=== PATIENT | female | born 1965 | race Caucasian/White ===

== ENCOUNTER 2017-06-20 16:14 | Emergency (ER) | END 2017-06-20 18:10 | disposition left against medical advice (07) ==

== ENCOUNTER 2018-08-04 08:11 | Day surgery (SDC) | payer BC ==
[~2018-08-04] VITALS: Ht 144.8 cm; Wt 81.3 kg
[~2018-08-04 08:11] MED LIST: ALBU8.5H8; RTPRO5
[2018-08-04] MEDS ORDERED: CHOLESTEROL MED (09:37)
[2018-08-04] MEDS ORDERED: LOSARTAN (09:37)
[2018-08-04 09:39] VITALS: Ht 144.8 cm; Wt 81.3 kg
--- NOTE | 2018-08-04 09:45 | PREAC ---
Date/Time of Note Date/Time of Note DATE: 08/04/18 TIME: 09:44 Anesthesia Eval and Record Evaluation Time Pre-Procedure Interview DATE: 08/04/18 TIME: 09:44 Age 53 Sex female NPO: 8 hrs Preoperative diagnosis screening Planned procedure colonoscopy Past Medical History Past Medical History: Includes Cardio: HTN Endo: Diabetes GI: Obesity Surgery & Anesthesia Issues No known issue Meds Anticoagulation: No Beta Mahogany within 24 hr: No Reason Beta Mahogany not given: Pt. not on B-Mahogany Reported Medications [Losartan ] No Conflict Check 08/04/18 [Cholesterol Med] No Conflict Check 08/04/18 Albuterol Sulfate* (Proair HFA*) 8.5 Gm Hfa.aer.ad 09/29/10 Albuterol Sulfate* (Proventil* Neb) 0.5 Ml Nebu 06/10/10 Meds reviewed: Yes Allergies Coded Allergies: No Known Drug Allergy (Verified Allergy, Mild, NONE, 02/01/11) Allergies Reviewed: Yes Labs/Studies Labs Reviewed: Reviewed by anesthesiologist test: N/A Pre-procedure Exam Airway: Adequate mouth opening Mallampati: Mallampati I Teeth: Abnormal (upper denture) Lung: Normal Heart: Normal ASA Physical Status ASA physical status: 2 Emergency: None Planned Anesthetic General/MAC: MAC Planned Pain Management Parenteral pain med Pre-operative Attestations Prior to commencing anesthesia and surgery, the patient was re-evaluated, there was verification of: *The patient's identity *The results of appropriate recent lab work and preoperative vital signs *The above evaluation not changing prior to induction *Anesthetic plan, risk benefits, alternative and complications discussed with patient/family; questions answered; patient/family understands, accepts and wishes to proceed. LUIS CHAVIS MD Aug 04, 2018 09:45
[2018-08-04] MEDS ORDERED: PROPOFOL 20 ML ONE (09:48)
[2018-08-04] MEDS ORDERED: FENTAnyl 50 MCG/ML VIAL ONE (09:49)
[2018-08-04 09:52] VITALS: BP 153/75; PULSE 59; RESP 17
[2018-08-04] MEDS ORDERED: ONDANSETRON 4 MG INJ IV PRN (10:00)
[2018-08-04 10:34] VITALS: BP 162/77; PULSE 61; RESP 20
--- NOTE | 2018-08-04 17:32 | PAC ---
Date/Time of Note Date/Time of Note DATE: 08/04/18 TIME: 17:32 Post-Anesthesia Notes Post-Anesthesia Note Last documented vital signs Vital Signs Date Temp Pulse Resp B/P (MAP) Pulse Ox O2 O2 Flow FiO2 Time Delivery Rate 08/04/18 97.6 61 20 162/77 97 Room Air 10:34 (105) 08/04/18 97.0 09:52 Activity: WNL Respiratory function: WNL Cardiovascular function: WNL Mental status: Baseline Pain reasonably controlled: Yes Hydration appropriate: Yes Nausea/Vomiting absent: No LUIS CHAVIS MD Aug 04, 2018 17:32
== END 2018-08-04 12:39 | disposition home or self-care (01) ==
LOC: GIL 08:11 → SDS 08:11 → GIL 12:39
PROVIDERS: ATTEND Internal Medicine Gastroenterology
DX: Z12.11 Encounter for screening for malignant neoplasm of colon (principal); D12.5 Benign neoplasm of sigmoid colon; K64.8 Other hemorrhoids; I10 Essential (primary) hypertension; E11.9 Type 2 diabetes mellitus without complications
CPT/HCPCS: 45380; 88305; J3010; Z7610